=== PATIENT | female | born 1980 | race Two or more races ===

== ENCOUNTER 2017-07-25 08:03 | Inpatient (IN) | payer MEDICAID ==
[2017-07-25 08:58] LABS: ADD MAN DIFF? NO
[2017-07-25] MEDS ORDERED: OXYTOCIN 30 UNITS/LR 500 ML IV ×2 (09:00)
[2017-07-25] MEDS ORDERED: MISOPROSTOL 200 MCG TAB PR (09:00)
[2017-07-25] MEDS ORDERED: METHYLERGONOVINE 0.2 MG INJ IM (09:00)
[2017-07-25] MEDS ORDERED: IBUPROFEN 600 MG TAB PO (09:00)
[2017-07-25] MEDS ORDERED: LIDOCAINE 1% (MPF) 30 ML INJ INJ (09:00)
[2017-07-25] MEDS ORDERED: CARBOPROST 250 MCG INJ IM (09:00)
[2017-07-25 09:04] LABS: INR 0.88; PT RATIO 0.9
[2017-07-25 09:05] LABS: BASOPHILS % 0.2 % (0.0-2.0); EOSINOPHILS % 0.4 % (0.0-7.0); HEMATOCRIT 35.1 % (37.0-47.0); HEMOGLOBIN 11.4 g/dl (12.0-16.0); LYMPHOCYTES # 1.7 10^3/ul (0.8-2.9); LYMPHOCYTES % 18.2 % (15.0-51.0); MEAN CORPUSCULAR HGB CONC 32.5 g/dl (32.0-37.0); MEAN CORPUSCULAR VOLUME 83.2 fl (82.0-101.0); MEAN PLATELET VOLUME 12.2 fl (7.4-10.4); MONOCYTE # 0.6 10^3/ul (0.3-0.9); MONOCYTES % 6.1 % (0.0-11.0); NEUTROPHIL # 6.9 10^3/ul (1.6-7.5); NEUTROPHILS % 74.7 % (39.0-77.0); PLATELET COUNT 190 10^3/UL (140-415); RED BLOOD COUNT 4.22 10^6/ul (4.20-5.40); RED CELL DISTRIBUTION WIDTH 15.8 % (11.5-14.5)
[2017-07-25 09:05] LABS: WHITE BLOOD COUNT 9.3 10^3/ul (4.8-10.8)
[2017-07-25] MEDS: LACTATED RINGER'S 1,000 ML IV ×3 (09:31→14:54)
[2017-07-25 10:59] LABS: ADD UMIC YES; UR ASCORBIC ACID NEGATIVE (NEGATIVE); UR BACTERIA FEW /HPF (NONE SEEN); UR BILIRUBIN (Dip) NEGATIVE (NEGATIVE); UR BLOOD (Dip) 3+ mg/dL (NEGATIVE); UR CLARITY CLOUDY (CLEAR); UR COLOR RED (YELLOW); UR GLUCOSE (Dip) NEGATIVE (NEGATIVE); UR KETONES (Dip) NEGATIVE (NEGATIVE); UR LEUKOCYTE ESTERASE (Dip) 3+ Leu/ul (NEGATIVE); UR MUCUS FEW /HPF (NONE SEEN); UR NITRITE (Dip) NEGATIVE (NEGATIVE); UR RBC > 182 /HPF (0-5); UR SPECIFIC GRAVITY (Dip) 1.017 (1.003-1.030); UR SQUAMOUS EPITHELIAL CELL FEW /HPF (FEW); UR TOTAL PROTEIN (Dip) 2+ mg/dl (NEGATIVE); UR UROBILINOGEN (Dip) NEGATIVE (NEGATIVE); UR WBC > 182 /HPF (0-5)
[2017-07-25] MEDS: OXYTOCIN 30 UNITS/LR 500 ML IV ×2 (11:50→22:43)
[2017-07-25 12:00] LABS: ALANINE AMINOTRANSFERASE 23 IU/L (13-69); ALBUMIN 3.6 g/dl (3.3-4.9); ALBUMIN/GLOBULIN RATIO 1.24; ALKALINE PHOSPHATASE 204 IU/L (42-121); ANION GAP 16 (8-16); ASPARTATE AMINO TRANSFERASE 23 IU/L (15-46); BILIRUBIN,INDIRECT 0.2 mg/dl (0-1.1); BILIRUBIN,TOTAL 0.2 mg/dl (0.2-1.3); BLOOD UREA NITROGEN 14 mg/dl (7-20); CALCIUM 8.6 mg/dl (8.4-10.2); CARBON DIOXIDE 20 mmol/L (21-31); CHLORIDE 110 mmol/L (97-110); CREATININE 0.66 mg/dl (0.44-1.00); GLUCOSE 73 mg/dl (70-220); POTASSIUM 4.2 mmol/L (3.5-5.1); SODIUM 142 mmol/L (135-144); TOTAL PROTEIN 6.5 g/dl (6.1-8.1); URIC ACID 4.9 mg/dl (3.1-7.9)
[2017-07-25] MEDS: MAGNESIUM SULFATE 3 GM in DEXTROSE 5% 100 ML IVPB (12:26)
[2017-07-25] MEDS: MAGNESIUM SULFATE 20 GM/500 ML 500 ML IV ×2 (13:01→18:52)
[2017-07-25 13:21] LABS: HEPATITIS B SURFACE ANTIGEN NEGATIVE (NEGATIVE)
[2017-07-25 13:29] LABS: MAGNESIUM 2.9 mg/dl (1.7-2.5)
[2017-07-25] MEDS ORDERED: FENTAnyl 2MCG/ML-ROPIV 0.2% 100 ML (15:02)
[2017-07-25 18:07] LABS: MAGNESIUM 4.7 mg/dl (1.7-2.5)
[2017-07-25] MEDS ORDERED: FENTAnyl 2MCG/ML-ROPIV 0.2% 100 ML BAG EPI (20:30)
[2017-07-25] MEDS ORDERED: NALOXONE (0.4 MG/ML) INJ IV (20:30)
[2017-07-25] MEDS ORDERED: MINERAL OIL LIGHT 10 ML VIAL TOP (21:27)
[2017-07-25 22:22] LABS: RAPID PLASMA REAGIN NONREACTIVE (NR)
[2017-07-26] MEDS ORDERED: OXYTOCIN 30 UNITS/LR 500 ML IV (01:00)
[2017-07-26] MEDS ORDERED: CARBOPROST 250 MCG INJ IM (01:00)
[2017-07-26] MEDS ORDERED: WITCH HAZEL/GLYCERIN PAD PR (01:00)
[2017-07-26] MEDS ORDERED: ZOLPIDEM 5 MG TAB PO (01:00)
[2017-07-26] MEDS ORDERED: METHYLERGONOVINE 0.2 MG INJ IM (01:00)
[2017-07-26] MEDS ORDERED: DIBUCAINE 1% 30 GM OINT PR (01:00)
[2017-07-26] MEDS ORDERED: MISOPROSTOL 200 MCG TAB PR (01:00)
[2017-07-26] MEDS ORDERED: HYDROCODONE/APAP (5/325) TAB PO ×2 (01:00)
[2017-07-26] MEDS: CEPHALEXIN 500 MG CAP PO ×5 (02:06→23:56)
[2017-07-26] MEDS: LACTATED RINGER'S 1,000 ML IV* ×3 (03:10→11:50)
[2017-07-26] MEDS: MAGNESIUM SULFATE 20 GM/500 ML 500 ML IV ×2 (03:54→20:58)
[2017-07-26] MEDS: IBUPROFEN 600 MG TAB PO ×4 (05:59→23:56)
[2017-07-26] MEDS: BENZOCAINE 20% 56 ML SPRAY TOP (06:00)
[2017-07-26] MEDS: LANOLIN 7 GM TUBE TOP (06:01)
[2017-07-26 08:31] LABS: ADD MAN DIFF? NO
[2017-07-26 08:33] LABS: WHITE BLOOD COUNT 14.5 10^3/ul (4.8-10.8)
[2017-07-26 08:33] LABS: BASOPHILS % 0.1 % (0.0-2.0); EOSINOPHILS % 0.1 % (0.0-7.0); HEMATOCRIT 28.7 % (37.0-47.0); HEMOGLOBIN 9.6 g/dl (12.0-16.0); LYMPHOCYTES # 1.7 10^3/ul (0.8-2.9); LYMPHOCYTES % 11.6 % (15.0-51.0); MEAN CORPUSCULAR HEMOGLOBIN 27.7 pg (29.0-33.0); MEAN CORPUSCULAR HGB CONC 33.4 g/dl (32.0-37.0); MEAN CORPUSCULAR VOLUME 82.9 fl (82.0-101.0); MEAN PLATELET VOLUME 12.9 fl (7.4-10.4); MONOCYTES % 6.7 % (0.0-11.0); NEUTROPHIL # 11.8 10^3/ul (1.6-7.5); PLATELET COUNT 198 10^3/UL (140-415); RED BLOOD COUNT 3.46 10^6/ul (4.20-5.40); RED CELL DISTRIBUTION WIDTH 15.7 % (11.5-14.5)
[2017-07-26 08:51] LABS: MAGNESIUM 3.8 mg/dl (1.7-2.5)
[2017-07-26] MEDS: SENNA/DOCUSATE NA (8.6MG/50MG) TAB PO ×2 (09:25→21:13)
[2017-07-26] MEDS: MAGNESIUM HYDROXIDE 30ML CUP PO ×2 (09:25→21:13)
[2017-07-26] MEDS: MEASLES,MUMPS,RUBELLA VACCINE INJ SC* (11:28)
[2017-07-26] MEDS: VARICELLA VACCINE LIVE/PF 1,350 UNIT/0.5 ML ML SC* (11:28)
[2017-07-26] MEDS: DIPHTH/TET/ACEL PERTUSS (ADULT) 0.5 ML VIAL IM* (11:28)
[2017-07-26 15:23] LABS: MAGNESIUM 3.8 mg/dl (1.7-2.5)
[2017-07-26 18:20] LABS: MAGNESIUM 3.7 mg/dl (1.7-2.5)
[2017-07-27] MEDS: LACTATED RINGER'S 1,000 ML IV* ×2 (00:58→08:58)
[2017-07-27] MEDS: CEPHALEXIN 500 MG CAP PO (06:05)
[2017-07-27] MEDS: IBUPROFEN 600 MG TAB PO ×2 (06:05→12:02)
[2017-07-27] MEDS: MAGNESIUM HYDROXIDE 30ML CUP PO (09:07)
[2017-07-27] MEDS: SENNA/DOCUSATE NA (8.6MG/50MG) TAB PO (09:07)
[2017-07-27 09:59] LABS: ADD MAN DIFF? NO
[2017-07-27 10:02] LABS: WHITE BLOOD COUNT 11.3 10^3/ul (4.8-10.8)
[2017-07-27 10:02] LABS: BASOPHILS % 0.2 % (0.0-2.0); EOSINOPHILS # 0.1 10^3/ul (0.0-0.5); EOSINOPHILS % 0.6 % (0.0-7.0); HEMOGLOBIN 8.5 g/dl (12.0-16.0); LYMPHOCYTES # 1.7 10^3/ul (0.8-2.9); LYMPHOCYTES % 14.6 % (15.0-51.0); MEAN CORPUSCULAR HEMOGLOBIN 27.3 pg (29.0-33.0); MEAN CORPUSCULAR HGB CONC 32.7 g/dl (32.0-37.0); MEAN CORPUSCULAR VOLUME 83.6 fl (82.0-101.0); MEAN PLATELET VOLUME 12.1 fl (7.4-10.4); MONOCYTE # 0.5 10^3/ul (0.3-0.9); MONOCYTES % 4.7 % (0.0-11.0); PLATELET COUNT 178 10^3/UL (140-415); RED BLOOD COUNT 3.11 10^6/ul (4.20-5.40)
== END 2017-07-27 13:35 | disposition home or self-care (01) | DRG 775 ==
LOC: L-D 08:03 → PP1 07-26 02:06
PROVIDERS: Obstetrics & Gynecology
PROC: 10E0XZZ Delivery of Products of Conception, External Approach (ICD-10-PCS; principal; 2017-07-25 09:00)
PROC: 4A1HXCZ Monitoring of Products of Conception, Cardiac Rate, External Approach (ICD-10-PCS; 2017-07-25 09:00)
DX: O76 Abnormality in fetal heart rate and rhythm complicating labor and delivery (principal); O69.81X0 Labor and delivery complicated by cord around neck, without compression, not applicable or unspecified; Z37.0 Single live birth; Z3A.39 39 weeks gestation of pregnancy
CPT/HCPCS: 62319; 80053; 81001; 83735; 84560; 85025; 85610; 85730; 86592; 86900; 86901; 87340